=== PATIENT | female | born 1975 | race Caucasian/White ===

== ENCOUNTER 2019-11-25 12:36 | Inpatient (IN) | payer OTHER, SELFPAY ==
[2019-11-25] VITALS (7 sets, daily range): BP systolic 107–131; BP diastolic 54–71; PULSE 72–77; TEMP 36.6; BMI 30.4
--- NOTE | 2019-11-25 19:16 | PM.IMHP ---
H&P: HPI History of Present Illness Date/Time: 11/25/19 17:32 Chief complaint: Induction of Labor Narrative: Parul Darby is a 44yo @ 36.5wks who presented to L&D for her routine testing and was found to have elevated blood pressures. PEC workup was ordered and showed thrombocytopenia and elevated urine P/C of 0.5. She denies headache, sob, vision changes, or RUQ pain. Her is complicated by: - AMA w/ normal cfDNA and normal testing - A1GDM - Bipolar and anxiety disorder on zoloft 50mg daily Review of Systems Constitutional: Constitutional: Denies body ache(s) and Denies chills Eyes: Eyes: Denies blurry vision Cardiovascular: Cardiovascular: Denies chest pain and Denies palpitations Respiratory: Respiratory: Denies cough and Denies dyspnea Gastrointestinal: Gastrointestinal: Denies abdominal pain, Denies nausea and Denies vomiting Genitourinary: Comments: no vaginal bleeding or leakage of fluid Neurologic: Denies headache(s) Psychiatric: Psychiatric: Reports anxiety [facility] Past Medical History Medical History (Updated 11/25/19 @ 18:43 by Alek Branch DO) Bipolar disorder Gestational diabetes OCD (obsessive compulsive disorder) Family History Family History Mother Dementia Diabetes mellitus Sibling Lupus Bipolar 1 disorder Father Hypertension Social History Social History Substance use: never Spiritual care concerns: No Meds Home Medications and Allergies Home Medications Medication Instructions Recorded Confirmed Type PNV cmb#95-ferrous fumarate-FA 1 tablet PO DAILY 11/17/19 11/18/19 History [] sertraline [Zoloft] 50 mg PO DAILY 11/17/19 11/18/19 History Allergies Allergy/AdvReac Type Severity Reaction Status Date / Time No Known Allergies Allergy Verified 11/17/19 14:43 Exam Const: General: comfortable and no acute distress Resp: Effort & Inspection: normal respiratory effort Cardio: Rate: regular rate GI: GI Palp: No Tenderness to palpation present (GI) : Other: FHT's: 130's/mod naty/ + accels/ no decels - cat 1 TOCO: irregular ctx's q3-5min Cervix: closed/20/-3 Membranes: intact Position: cephalic on official US today Skin: General skin exam: normal color Neuro: Speech: normal speech Extrem: General: normal to inspection Psych: Affect: normal affect Assessment and Plan Assessment and plan (1) Pre-eclampsia: Qualifiers: Trimester: third trimester Qualified Code(s): O14.93 - Unspecified pre-eclampsia, third trimester Code(s): O14.90 - Unspecified pre-eclampsia, unspecified trimester Status: Acute (2) Gestational diabetes: Qualifiers: Gestational diabetes mellitus control: diet-controlled Trimester: third trimester Qualified Code(s): O24.410 - Gestational diabetes mellitus in , diet controlled Code(s): O24.419 - Gestational diabetes mellitus in , unspecified control Status: Acute (3) Advanced maternal age (AMA) in : Status: Acute Additional Plan - Pt informed of the new diagnosis of pre-eclampsia with severe features and delivery is indicated after 34wks. Pt initially had questions about waiting until full term (or another week), but informed of the maternal and risks of seizure, brain bleed, , IUFD, placental aburption. Pt then agreed to admission and IOL - Admit to L&D for cervical ripening with cervidil - BP's in normal to mild range, pt asymptomatic. Will repeat labs in AM - MgSO4 to be started tonight if severe range BP's or tomorrow after cervidil - IV labetalol per protocol if severe ranges - Glucose checks per protocol - BPP 8/8, FHT continuous and reassuring - Anesthesia consult PRN pain
[2019-11-25] MEDS: DINOPROSTONE 10 MG VAG INSERT VAGINAL (19:31)
[2019-11-25] MEDS: LACTATED RINGERS 1,000 ML 125 ML IV CONT (19:35)
[2019-11-25] MEDS: AMPICILLIN 2 GM/NS 100 ML 2 GM/100 ML BAG IVPB (19:36)
--- NOTE | 2019-11-25 19:42 | LDADM ---
This patient, Parul Darby, was admitted to Labor/Delivery/Recovery 104 on 11/25/19 at 12:36. Plans for labor, pain management and were discussed with patient. Patient/family oriented to hospital policies and general routines including ID bracelet, bed and alarms, visiting hours, pain management, procedures, bathroom and other care routines, personal items, smoking policy, room service/diet and guest tray routines, security routines, and visiting hours. Patient/Family are encouraged to report perceived risks to care and to ask questions if they do not understand what they are told or what they should do. See OBIX for further documentation.
[2019-11-25 20:29] LABS: Glucose Point of Care 123 (65-105)
[2019-11-25] MEDS: ZOLPIDEM TARTRATE 5 MG TABLET PO (23:19)
[2019-11-25] MEDS: AMPICILLIN 1 GM/NS 50 ML 1 GM/50 ML BAG IVPB (23:19)
[2019-11-26] VITALS (105 sets, daily range): BP systolic 113–172; BP diastolic 60–115; PULSE 58–161; RESP 16–18; TEMP 36.2–37.8; O2SAT 96–100
[2019-11-26] MEDS: AMPICILLIN 1 GM/NS 50 ML 1 GM/50 ML BAG IVPB ×4 (03:18→15:29)
[2019-11-26 05:35] LABS: Glucose Point of Care 82 (65-105)
[2019-11-26] MEDS: OXYTOCIN 30 UNITS/NS 500 ML 30 UNITS/500 ML BAG 6 UNITS IV CONT (06:51)
[2019-11-26 07:30] LABS: Glucose Point of Care 128 (65-105)
--- NOTE | 2019-11-26 07:38 | WPDANESEPP ---
Anes - Eval Pre Procedure Procedure: labor epidural Date/Time: 11/26/19 07:38 Preop Diagnosis: labor pain Pre Op Diagnosis: Induction of Labor Patient Data Age: 44 Gender: F Height: 5 ft 7 in Weight: 88 kg Last Vital Signs Temp 36.8 C 11/26/19 05:29 Pulse 79 11/26/19 07:31 BP 137/86 11/26/19 07:31 Allergies Allergy/AdvReac Type Severity Reaction Status Date / Time No Known Allergies Allergy Verified 11/17/19 14:43 Home Medications Medication Instructions Recorded Confirmed Type PNV cmb#95-ferrous fumarate-FA 1 tablet PO DAILY 11/17/19 11/25/19 History [] sertraline [Zoloft] 50 mg PO DAILY 11/17/19 11/25/19 History Laboratory Tests 11/25/19 11/25/19 11/25/19 19:22 19:22 20:26 POC Capillary Glucose 123 mg/dl H mg/dl (65-105) RPR Pending Blood Type A Positive Antibody Screen Negative 11/26/19 11/26/19 05:28 07:19 POC Capillary Glucose 82 mg/dl mg/dl 128 mg/dl H mg/dl (65-105) (65-105) RPR Blood Type Antibody Screen Patient hx anesthesia problems: none Family hx anesthesia problems: none PMFSH Past Medical History Medical History (Updated 11/25/19 @ 18:43 by Alek Branch DO) Bipolar disorder Gestational diabetes OCD (obsessive compulsive disorder) Family History Family History Mother Dementia Diabetes mellitus Sibling Lupus Bipolar 1 disorder Father Hypertension Social History Social History Smoking status: Former smoker Smoking end date: 04/26/19 Substance use: never Spiritual care concerns: No Exam Day of Procedure 11/26/19 07:38
--- NOTE | 2019-11-26 07:52 | PM.OBPNLAB ---
Pain Control Date/time seen: 11/26/19 07:52 Pain control: tolerating well (having some pain with contractions; considering epidural soon) Pelvic Exam Dilation (cm): 1 Effacement (%): 70 station: -3 Amniotic membrane status: Ruptured (SROM, clear @ 0500) Contractions Monitor mode: External Contraction frequency: 4 Contraction pattern: Irregular Status status: Category l Assessment and Plan Pitocin rate (mU/min): 4 Assessment: induction ongoing Plan: continuous present management Comments: - Latent phase; SROM, clear 0500 - BP's in normal to mild range; pt asymptomatic -- labs pending - FHT cat 1, continuous monitoring - Continue pitocin to obtain contractions q2-3min - Anesthesia consult for epidural
[2019-11-26 08:27] LABS: Hematocrit 38.5 % (37.0-47.0); Hemoglobin 13.4 g/dL (12.0-15.0); Immature Platelet Fraction Pct 16.9 % (0.9-11.2); Mean Corpuscular HGB Conc 34.8 g/dl (32-36); Mean Corpuscular Hemoglobin 32.2 pg (26-34); Mean Corpuscular Volume 92.5 fl (80-100); Mean Platelet Volume 13.2 fl (7.4-10.4); Platelet Count Result 115 k/mm3 (150-375); Red Blood Count 4.16 M/mm3 (4.2-5.4); Red Cell Distribution Width 12.9 % (11.5-14.5); White Blood Count 9.5 K/mm3 (4.5-10.0)
[2019-11-26 08:40] LABS: Alanine Aminotransferase 20 U/L (4-35); Albumin Level 3.2 g/dL (3.5-5.1); Alkaline Phosphatase 223 U/L (38-126); Anion Gap 6 mmol/L (8-16); Aspartate Amino Transferase 26 U/L (14-36); Bilirubin,Total 0.3 mg/dL (0.2-1.3); Blood Urea Nitrogen 12 mg/dL (7-17); Calcium 8.6 mg/dL (8.4-10.2); Carbon Dioxide 20 mmol/L (22-30); Chloride 108 mmol/L (98-107); Estimated CRCL calculation 100 ml/min; Estimated Glomerular Filt Rate > 60; Glucose 111 mg/dL (65-105); Sodium 134 mmol/L (137-145)
[2019-11-26 08:46] LABS: Potassium 3.7 mmol/L (3.4-5.0)
[2019-11-26] MEDS: LACTATED RINGERS 1,000 ML 125 ML IV CONT ×2 (10:02→22:45)
[2019-11-26 11:40] LABS: Rapid Plasma Reagin Non-Reactive (NonReactive)
[2019-11-26] MEDS: MAGNESIUM SULF 4 GM/WATER100ML 4 GM/100 ML BAG IVPB (11:52)
[2019-11-26 12:19] LABS: Glucose Point of Care 81 (65-105)
[2019-11-26] MEDS: MAGNESIUM SULF 20GM/WATER500ML 500 ML 50 MG IV CONT (12:27)
--- NOTE | 2019-11-26 12:31 | PM.OBPNLAB ---
Pain Control Date/time seen: 11/26/19 12:31 Pain control: epidural Pelvic Exam Dilation (cm): 5 Effacement (%): 90 station: -2 Amniotic membrane status: Ruptured (SROM, clear @ 0500) Contractions Monitor mode: External Contraction frequency: 3 Contraction pattern: Regular Status status: Category ll Comments: occasional late decel noted but good variability noted; resuscitation ongoing-- pt s/p epidural and having lower BP's Assessment and Plan Pitocin rate (mU/min): 18 Assessment: induction ongoing Plan: continuous present management Comments: - if lates continue; will hold pitocin - monitoring closely - making great cervical change - BP's normal range; pt asymptomatic
[2019-11-26 14:23] LABS: Glucose Point of Care 76 (65-105)
[2019-11-26] MEDS: SERTRALINE HCL 50 MG TABLET PO (14:56)
[2019-11-26] MEDS: ONDANSETRON INJ 4 MG/2 ML VIAL IV PUSH (15:50)
[2019-11-26 16:25] LABS: Glucose Point of Care 77 (65-105)
--- NOTE | 2019-11-26 18:33 | PM.OBPRVD ---
OB - Delivery Note Procedure Delivery date: 11/26/19 events: Gestational Diabetes, Pre-Eclampsia and Labor Induction Induction method: other (cervidil) Delivery augmentation: pitocin Delivery monitor: external FHT and external uterine Route of delivery: Laceration description: Perineal - 2nd Degree Delivery repair: vicryl Specimen: Yes Estimated blood loss (mL): 150 Anesthesia type: Epidural Disposition: floor Narrative: Patient progressed to complete dilation and began pushing with good maternal effort. She delivered the head over intact perineum. The shoulders and body delivered without complication. The umbilical cord was clamped and cut and the infant was immediately handed off to the awaiting pediatric team. With stimulation and suctioning, cry was heard. A segment of the umbilical cord was collected for cord gases. The remaining cord blood was collected for typing. With Pitocin running and gentle downward traction on the umbilical cord the placenta delivered without complications. Bimanual massage found that the uterus was firm. Inspection of the cervix, vagina, and perineum revealed a 2nd degree perineal laceration. The laceration was repaired using 2-0 Vicryl in the normal fashion. Good uterine tone was noted. Good hemostasis was noted. Sponge, lap, needle, instrument counts were correct at the end of the procedure. Mom and baby were left bonding in the birthing suite in a stable condition. [place] Baby Date of : 11/26/19 Time of : 18:12 Weeks of gestation at delivery: 36 Weight (pounds): 6 Weight (ounces): 9 presentation: vertex position: Left Occiput Anterior Placenta delivery description: Expressed cord vessel description: 3 Vessels score one minute: 5 score five minutes: 8
[2019-11-26] MEDS: OXYTOCIN 30 UNITS/NS 500 ML 30 UNITS/500 ML BAG 125 UNITS IV CONT (18:36)
[2019-11-26] MEDS: IBUPROFEN 600 MG TABLET PO (20:26)
[2019-11-26] MEDS: WITCH HAZEL 40 PADS 1 PAD TOPICAL (20:27)
[2019-11-26] MEDS: BENZOCAINE 20% AER SPR (*SP) 56 GM CAN 1 SPRAY TOPICAL (20:27)
--- NOTE | 2019-11-26 21:32 | OBPPTRN ---
Patient transferred to post room #282 via wheelchair. Support person present. Oriented to unit, room, information board, rooming in, admission packet and security measures. Patient verbalizes understanding. Infant was transferred to to [facility].
[2019-11-26] MEDS: ZOLPIDEM TARTRATE 5 MG TABLET PO (22:39)
[2019-11-26] MEDS: LACTATED RINGERS 1,000 ML 75 ML (22:50)
[2019-11-26] MEDS: MAGNESIUM SULF 20GM/WATER500ML 500 ML 50 MG (22:50)
[2019-11-27] VITALS (8 sets, daily range): BP systolic 103–125; BP diastolic 61–80; PULSE 64–76; RESP 16–18; TEMP 36.1–37; O2SAT 96–100
[2019-11-27 05:50] LABS: Hematocrit 35.3 % (37.0-47.0); Hemoglobin 12.1 g/dL (12.0-15.0); Immature Platelet Fraction Pct 16.7 % (0.9-11.2); Mean Corpuscular HGB Conc 34.3 g/dl (32-36); Mean Corpuscular Volume 93.4 fl (80-100); Mean Platelet Volume 13.6 fl (7.4-10.4); Platelet Count Result 107 k/mm3 (150-375); Red Blood Count 3.78 M/mm3 (4.2-5.4); White Blood Count 14.8 K/mm3 (4.5-10.0)
[2019-11-27 06:09] LABS: Alanine Aminotransferase 15 U/L (4-35); Albumin Level 2.6 g/dL (3.5-5.1); Alkaline Phosphatase 203 U/L (38-126); Anion Gap 5 mmol/L (8-16); Aspartate Amino Transferase 26 U/L (14-36); Bilirubin,Total 0.2 mg/dL (0.2-1.3); Blood Urea Nitrogen 12 mg/dL (7-17); Calcium 7.1 mg/dL (8.4-10.2); Carbon Dioxide 23 mmol/L (22-30); Chloride 103 mmol/L (98-107); Estimated CRCL calculation 79 ml/min; Estimated Glomerular Filt Rate > 60; Glucose 146 mg/dL (65-105); Potassium 3.8 mmol/L (3.4-5.0); Sodium 131 mmol/L (137-145)
--- NOTE | 2019-11-27 07:42 | WPDANLDPN2 ---
Anes-Prog Note L&D Date/Time: 11/27/19 07:42 Comfortable throughout: labor Neuraxial method: epidural Epidural/Spinal procedure site: clean & non-tender Neuro status: Neuro function grossly intact. Cardiovascular status: normal Respiratory status: normal Airway patency: baseline Mental status: baseline Post-Op hydration status: normal Vital Signs: Last Vital Signs Temp 36.3 C L 11/27/19 05:00 Pulse 71 11/27/19 05:00 Resp 16 11/27/19 05:00 BP 108/65 11/27/19 05:00 Pulse Ox 97 11/27/19 05:00 I/O: Intake & Output 11/26/19 11/26/19 11/27/19 15:59 23:59 07:59 Intake Total 200 2920 Output Total 972 700 Balance 200 1948 -700 Post-procedural complaints: none Patient feedback: Patient satisfied with anesthetic care.
[2019-11-27] MEDS: ACETAMINOPHEN 325 MG TABLET 650 MG PO ×3 (08:26→22:17)
[2019-11-27] MEDS: SERTRALINE HCL 50 MG TABLET PO ×2 (08:26→12:09)
[2019-11-27] MEDS: IBUPROFEN 600 MG TABLET PO ×3 (08:27→22:20)
[2019-11-27] MEDS: DOCUSATE SODIUM 100 MG CAPSULE PO (08:27)
[2019-11-27] MEDS: MULTIVIT/MIN/PREN/FOL AC/IRON TABLET 1 TAB PO (08:28)
[2019-11-27] MEDS: MAGNESIUM SULF 20GM/WATER500ML 500 ML 50 MG IV CONT (09:03)
--- NOTE | 2019-11-27 10:30 | PC.NURSE ---
Consult with pt., mother states she is unsure if she wishes to initiate pumping. Mother may have to begin medications that she cannot breastfeed with. Decision to wait until mother speaks with her psychiatrist.
--- NOTE | 2019-11-27 11:45 | PM.OBPNVD ---
OB - PN: Subj Subjective Date/time seen: 11/27/19 17:13 Parul is a 44yo now [id number] s/p , PPD#1 Today she reports physically being fine, mentally not well. She states her pain is controlled. She is eating regular diet. She has ambulated to the restroom. She is voiding and passing flatus. She reports her bleeding is light. She states her mood is all over the place though. She is very tired (only slept 4 hrs the last two nights). She feels very down and anxious. She thinks the zoloft 50mg is helping, but not enough and would like to go to 100mg. She is also considering restarting her bipolar medications (Latuda and Casa) and is aware that she cannot breast feed while taking these medications. She is conflicted with bottle feeding. She has considered contacting her psychiatrist, Dr. Tomasz Rajput. She feels like she needs to stay in the hospital another night or two to get rest as she feels like she cannot care for her son in her current state. She denies CP, SOB, KELLY, vision changes, N/V, fever, chills, dizziness, or palpitations. Her son was transferred to [facility] last night due to sustained SVT that would not convert with vagal maneuvers or adenosine x2. It did convert after UVC was placed and an additional dose of adenosine was given. He was placed on metoprolol drip. He was also noted to have 7 crusted lesions on his body (concern for staph vs HSV). He also originally had poor tone/cry, which has improved today. He was also assisted with breathing via [place] (TTP). They are giving him antibiotics/acyclovir and have completed a sepsis w/u. This morning he was pending cardiology consult. They also plan to swab the lesions 24hrs after for bacterial and HSV. After discussing with the patient, she denies any h/o cold sores or genital herpes lesions ever (none prior to or during ). OB - PN: Obj Data Labs CBC & Chem 7: 11/27/19 05:05 11/27/19 05:04 Labs: Laboratory Results - last 24 hr 11/27/19 11/27/19 05:04 05:05 WBC 14.8 H RBC 3.78 L Hgb 12.1 Hct 35.3 L MCV 93.4 MCH 32.0 MCHC 34.3 RDW 13.0 Plt Count 107 L MPV 13.6 H % Immature Plt Fraction 16.7 H Sodium 131 L Potassium 3.8 Chloride 103 Carbon Dioxide 23 Anion Gap 5 L BUN 12 Creatinine 0.90 Estim Creat Clear Calc 79 Estimated GFR > 60 Glucose 146 H Calcium 7.1 L Total Bilirubin 0.2 AST 26 ALT 15 Alkaline Phosphatase 203 H Total Protein 5.0 L Albumin 2.6 L OB - PN A/P Assessment and Plan (1) Bipolar 1 disorder, mixed: Code(s): F31.60 - Bipolar disorder, current episode mixed, unspecified Status: Acute (2) Pre-eclampsia: Qualifiers: Trimester: third trimester Qualified Code(s): O14.93 - Unspecified pre-eclampsia, third trimester Code(s): O14.90 - Unspecified pre-eclampsia, unspecified trimester Status: Acute (3) Vaginal delivery: Code(s): O80 - Encounter for full-term uncomplicated delivery Status: Acute Plan day: 1 Comments: - ; she is meeting her PP milestones - Will discontinue MgSO4 today-- BP's in normal range; pt asymptomatic-- will continue to monitor BP's closely, will repeat labs again tomorrow - Will increase Zoloft to 100mg daily - Dr. Tomasz Rajput's office contacted; awaiting call back to discuss his opinion on restarting medications now vs monitoring her response on the increased zoloft. If he recommends restarting prior meds will discuss the normal titration (slowly increase vs restart at the previous dose). I also recommended the pt make appt with him RENATA. I will also see the patient in 1wk to follow up BP's and mood. - Plan for possible discharge home Sunday evening/Sunday morning Time Spent With Patient Time: Total time spent is greater than 50% in coordination of care (as documented) at patient's floor/unit and/or counseling patient: Time with
[2019-11-27] MEDS: ZOLPIDEM TARTRATE 5 MG TABLET PO (22:20)
[2019-11-28] MEDS: ACETAMINOPHEN 325 MG TABLET 650 MG PO ×2 (04:51→09:36)
[2019-11-28] MEDS: IBUPROFEN 600 MG TABLET PO ×2 (04:52→10:54)
[2019-11-28 05:38] VITALS: BP 124/79; PULSE 63; RESP 16; TEMP 36.9; O2SAT 97
[2019-11-28 07:50] VITALS: BP 133/80; PULSE 64; RESP 16; TEMP 36.8; O2SAT 99
[2019-11-28] MEDS: SERTRALINE HCL 50 MG TABLET 100 MG PO (09:35)
[2019-11-28] MEDS: DOCUSATE SODIUM 100 MG CAPSULE PO (09:35)
--- NOTE | 2019-11-28 11:38 | PC.NURSE ---
Pt viewed the discharge DVD on the hospital computer.
[2019-11-28 12:35] VITALS: BP 144/89; PULSE 80; RESP 18; TEMP 37.2; O2SAT 99
--- NOTE | 2019-12-03 12:47 | PM.OBDSVD ---
DS: Admitting Diagnosis Admitting Diagnosis Admitting Diagnosis: Induction of Labor DS: Discharge Diagnosis Discharge Diagnosis (1) Pre-eclampsia: Qualifiers: Trimester: third trimester Qualified Code(s): O14.93 - Unspecified pre-eclampsia, third trimester Code(s): O14.90 - Unspecified pre-eclampsia, unspecified trimester Status: Acute (2) Advanced maternal age (AMA) in : Status: Acute (3) Gestational diabetes: Qualifiers: Gestational diabetes mellitus control: diet-controlled Trimester: third trimester Qualified Code(s): O24.410 - Gestational diabetes mellitus in , diet controlled Code(s): O24.419 - Gestational diabetes mellitus in , unspecified control Status: Acute (4) Bipolar 1 disorder, mixed: Code(s): F31.60 - Bipolar disorder, current episode mixed, unspecified Status: Acute (5) Vaginal delivery: Code(s): O80 - Encounter for full-term uncomplicated delivery Status: Acute OB - DS: Summary OB Procedures : NST and Ultrasound OB Procedures Intrapartum: Spontaneous Vag Delivery OB Procedures: : None Peripartum Data Infant Delivery Method: Natural Vaginal Laceration description: Perineal - 2nd Degree complications: none [place] 1: Gender: Female Disposition of : NICU (transferred to [facility] on day of life 0) Status at Discharge Functional status at discharge: independent ambulation Overall status at discharge: patient is back to baseline Time Spent with Patient Time attestation: Total time spent providing and/or coordinating discharge services: Exam Const: General: comfortable, no acute distress, alert and awake Orientation/consciousness: patient oriented x3 Limitations: no limitations Resp: Effort & Inspection: normal respiratory effort Auscultation: clear to auscultation bilaterally Cardio: Rate: regular rate GI: GI Palp: No Tenderness to palpation present (GI) Auscultation: normal bowel sounds Other: non-distended, soft : Other: fundus firm below umbilicus Psych: Appearance: grossly normal Affect: normal affect Attitude: cooperative Discharge Plan Discharge Attending physician on discharge: Dior Craft Discharging Clinician: Dior Craft Anticipated Discharge Date/Time: 11/28/19 14:00 Patient Disposition: Home, Self-Care Activity: may shower, no straining, may drive after 2 weeks, as tolerated and pelvic rest Diet: regular Discharge Instructions: Education: Mom and Baby Guide Given to: Mother Follow-Up: Call your delivering provider's office for an appointment to be seen in: see Dr. Rivera. December 03 Mom and baby should come to the [facility] for the follow-up appointment. Appointment Date/Time: December 01, 2019 at 12:30 pm What to expect at your follow-up visit: Blood Pressure Check Physical Assessment Call [phone] if you are unable to keep your appointment time. BREAST CARE: * Wear a snug supportive bra. * For engorgement discomfort: Breast Feeding: * Apply warm moist washcloths * Express milk as needed to relieve engorgement * Wear loose clothing Bottle Feeding: * May apply ice packs * For sore nipples: * Identify correct latch-on * Apply warm moist washcloths before and after nursing * Air dry nipples after nursing * May apply Lansinoh cream to nipples EPISIOTOMY/PERINEAL CARE: * Until bleeding stops, use your toi bottle after urinating * Change your pad frequently throughout the day * You may take sitz baths several times a day (fill your bathtub with warm water and soak for 20 minutes.) Do NOT bathe in the water * No tub baths until seen by your physician - You may shower ACTIVITY: * Rest as much as possible. * Do not exercise or lift anything heavier [place]
== END 2019-11-28 13:55 | disposition home or self-care (01) | DRG 560 ==
LOC: ANHOBPP 16:55 → ANHLDR 16:57 → ANHOB2 11-27 00:06
PROVIDERS: Admitting Provider Obstetrics & Gynecology; Visit Provider Obstetrics & Gynecology
DX: O14.14 Severe pre-eclampsia complicating childbirth (principal); Z37.0 Single live birth; Z3A.36 36 weeks gestation of pregnancy; O24.410 Gestational diabetes mellitus in pregnancy, diet controlled; O99.824 Streptococcus B carrier state complicating childbirth; O36.8330 Maternal care for abnormalities of the fetal heart rate or rhythm, third trimester, not applicable or unspecified; O99.12 Other diseases of the blood and blood-forming organs and certain disorders involving the immune mechanism complicating childbirth; D69.6 Thrombocytopenia, unspecified; O99.344 Other mental disorders complicating childbirth; F31.9 Bipolar disorder, unspecified; F41.9 Anxiety disorder, unspecified; F42.9 Obsessive-compulsive disorder, unspecified; O70.1 Second degree perineal laceration during delivery
CPT/HCPCS: 36415; 59025; 76816; 76819; 80053; 82570; 84156; 84550; 85025; 85027; 85055; 86592; 86850; 86900; 86901; A9270; J0131; J0290; J2405; J2590; J2795; J3475; J7120

== ENCOUNTER 2019-11-25 12:39 | Outpatient (RCR) | payer MEDICAID, SELFPAY ==
[2019-10-22 14:23] VITALS: BP 120/74; PULSE 97
[2019-10-28 14:38] VITALS: BP 123/73; PULSE 77
[2019-11-04 15:39] VITALS: BP 124/70; PULSE 69
[2019-11-11 15:14] LABS: Glucose Point of Care 98 (65-105)
[2019-11-11 17:16] VITALS: BP 131/79; PULSE 72
--- NOTE | 2019-11-11 17:19 | PC.NURSE ---
1500 pt back from BPP resulted 07/01. called Dr. Craft and order received to monitor another [address] Craft in unit reviewed NST. ordered repeat BPP at bedside. 1700 Ultrasound at bedside. BPP 10/31. Dr. Craft ordered okay to discharge.
--- NOTE | ~2019-11-25 | US_ITS ---
EXAMINATION: US OB BPP wo non-stress DATE: 11/11/2019 14:59 INDICATION: Diabetes, third trimester TECHNIQUE: Real-time pelvic ultrasound was performed. The interpreting radiologist was not present fo r the study. COMPARISON: None. FINDINGS: There is a single living fetus in vertex presentation. The placenta is posterior. heart rate is 134 beats per minute (bpm). Biophysical profile performed by the technologist: breathing (30 sec sustained breathing in 30 minutes): 2 out of 2 movement (3 gross body movements in 30 minutes): 0 out of 2 tone (one episode of ulddepu-aqmsrbcby-ahxyoxq limb movement): 0 out of 2 Amniotic fluid pocket (2 cm): 2 out of 2 Total score: 4 out of 8 IMPRESSION: 1. Single living fetus in vertex presentation. 2. Biophysical profile 4 out of 8. Reviewed, dictated and finalized at location A.
--- NOTE | ~2019-11-25 | US_ITS ---
EXAMINATION: US OB follow up w BPP DATE: 11/25/2019 14:40 INDICATION: Maternal gestational diabetes. Assess biophysical profile and estimated weight duri third trimester of . TECHNIQUE: Real-time pelvic ultrasound was performed. The interpreting radiologist was not present fo r the study. COMPARISON: 11/18/2019 FINDINGS: There is a single living fetus in vertex presentation. The placenta is fundal with multiple small in ternal anechoic placental lakes. heart rate is 124 beats per minute (bpm). Normal amniotic flui d index of 16.1 cm (5th%-95%: 7.7-24.4 cm at 36 weeks estimated gestational age). The following biometric data were obtained: BPD: 9.1 cm -> 37 weeks 0 days Head circumference: 32.4 cm -> 37 weeks 1 days Abdominal circumference: 32.9 cm -> 36 weeks 6 days Femur length: 7.2 cm -> 36 weeks 5 days These measurements are concordant. Head circumference to abdominal circumference ratio: 0.99 (normal range 0.92-1.05). Estimated weight: 3053 g (+/-) 458 g, 6lbs 12oz (+/-) 16oz Biophysical profile performed by the technologist: breathing (30 sec sustained breathing in 30 minutes): 2 out of 2 movement (3 gross body movements in 30 minutes: 2 out of 2 tone (one episode of lludqfq-vytsffwlh-fosbmrp limb movement): 2 out of 2 Amniotic fluid pocket (2 cm): 2 out of 2 Total score: 8 out of 8 IMPRESSION: 1. Single living fetus in vertex presentation with heart rate of 124 bpm. 2. Normal amniotic fluid index of 16.1 cm. 3. Biophysical profile 8 out of 8. 4. Estimated weight is 59th percentile by Hadlock criteria when 12/18/2019 is used as the estima jose d date of delivery (PARMJIT). Please correlate with clinical information or earlier ultrasounds for mos t accurate PARMJIT. Reviewed, dictated and finalized at location B. IMPRESSION: 1. Single living fetus in vertex presentation with heart rate of 124 bpm . 2. Normal amniotic fluid index of 16.1 cm. 3. Biophysical profile 8 out of 8. 4. Estimated weight is 59th percentile by Hadlock criteria when 12/18/2019 is used as the estimated date of delivery (PARMJIT). Please correlate with clinica l information or earlier ultrasounds for most accurate PARMJIT.
--- NOTE | ~2019-11-25 | US_ITS ---
EXAMINATION: US OB BPP wo non-stress DATE: 11/11/2019 17:20 INDICATION: Prior failed biophysical profile TECHNIQUE: Real-time pelvic ultrasound was performed. The interpreting radiologist was not present fo r the study. COMPARISON: 11/11/2019 at 2:07 PM FINDINGS: There is a single living fetus in vertex presentation. The placenta is posterior fundal a few small central hypoechoic placental lakes. heart rate is 138 beats per minute (bpm). Biophysical profile performed by the technologist: breathing (30 sec sustained breathing in 30 minutes): 2 out of 2 movement (3 gross body movements in 30 minutes): 2 out of 2 tone (one episode of jvavuzf-soniudufd-fzxetwv limb movement): 2 out of 2 Amniotic fluid pocket (2 cm): 2 out of 2 Total score: 8 out of 8 IMPRESSION: 1. Single living fetus in vertex presentation with heart rate of 138 bpm. 2. Biophysical profile 8 out of 8. Reviewed, dictated and finalized at location A.
--- NOTE | ~2019-11-25 | US_ITS ---
EXAMINATION: US OB BPP wo non-stress EXAM DATE: 11/18/2019 13:51 INDICATION: Gestational diabetes. 3rd trimester. TECHNIQUE: Pelvic obstetrical transabdominal sonogram was performed by a technologist. There are mu ltiple grayscale and Doppler images available for interpretation. Comparison is made to prior examina tion from 11/11/2019. FINDINGS: There is a single fetus identified in vertex presentation with a heart rate of 159 beats pe r minute. The placenta is located in the posterior fundal position. There is no sonographic evidence of retroplacental hemorrhage identified. BIOPHYSICAL PROFILE (performed by the technologist) breathing (30 sec sustained breathing in 30 minutes): 2 out of 2 movement (3 gross body movements in 30 minutes): 2 out of 2 tone (one episode of uqrbynu-hxufoyfie-xqgtcql limb movement): 2 out of 2 Amniotic fluid pocket (2 cm): 2 out of 2 Total score: 8 out of 8 IMPRESSION: 1. Single fetus with heart rate of 159 bpm. 2. Normal biophysical profile score of 8 out of 8. Reviewed, dictated and finalized at location A.
[2019-11-25 13:37] VITALS: BP 136/93; PULSE 70
--- NOTE | 2019-11-25 14:00 | PC.NURSE ---
Called Dr. Craft with BPs. Labs ordered. Call with results.
[2019-11-25 15:15] LABS: Basophils Absolute Auto 0.1 K/mm3 (0.0-0.1); Basophils Percent Auto 0.8 % (0.2-1.2); Eosinophils Absolute Auto 0.1 K/mm3 (0-0.3); Hematocrit 41.4 % (37.0-47.0); Hemoglobin 14.3 g/dL (12.0-15.0); Immature Granulocyte Absolute 0.04 K/mm3 (0.00-0.031); Immature Granulocyte Percent A 0.4 % (0-0.5); Lymphocytes Absolute Auto 2.12 K/mm3 (0.9-3.2); Lymphocytes Percent Auto 22.8 % (18.3-44.2); Mean Corpuscular HGB Conc 34.5 g/dl (32-36); Mean Corpuscular Hemoglobin 31.8 pg (26-34); Mean Platelet Volume 13.6 fl (7.4-10.4); Monocytes Absolute Auto 0.8 K/mm3 (0.1-0.6); Monocytes Percent Auto 8.1 % (2.6-8.5); Neutrophils Absolute Auto 6.2 K/mm3 (1.3-6.7); Neutrophils Percent Auto 66.9 % (45.5-73.1); Platelet Count Result 143 k/mm3 (150-375); Red Cell Distribution Width 12.8 % (11.5-14.5); White Blood Count 9.3 K/mm3 (4.5-10.0)
[2019-11-25 15:17] LABS: Creatinine Urine 24.5 mg/dL; Total Protein Urine Random 13 mg/dL
[2019-11-25 15:26] LABS: Alanine Aminotransferase 23 U/L (4-35); Albumin Level 3.6 g/dL (3.5-5.1); Alkaline Phosphatase 251 U/L (38-126); Anion Gap 6 mmol/L (8-16); Aspartate Amino Transferase 32 U/L (14-36); Bilirubin,Total 0.4 mg/dL (0.2-1.3); Blood Urea Nitrogen 13 mg/dL (7-17); Calcium 9.6 mg/dL (8.4-10.2); Carbon Dioxide 21 mmol/L (22-30); Chloride 105 mmol/L (98-107); Estimated Glomerular Filt Rate > 60; Glucose 84 mg/dL (65-105); Potassium 4.3 mmol/L (3.4-5.0); Sodium 132 mmol/L (137-145); Uric Acid 6.1 mg/dL (2.5-7.5)
--- NOTE | 2019-11-25 15:30 | PC.NURSE ---
Called Dr. Craft with lab results and BPs. Informed of SVE. Orders received to admit for induction. Dr. Craft will come to see pt and discuss plan of care.
--- NOTE | 2019-11-25 15:45 | PC.NURSE ---
Informed pt of Dr. Craft' orders. Pt requesting to talk to Dr. Craft before starting induction.
--- NOTE | 2019-11-25 15:58 | PC.NURSE ---
Informed Dr. Craft that pt is requesting to discuss plan of care with her before starting induction. Dr. Craft will be here soon.
--- NOTE | 2019-11-25 16:40 | PC.NURSE ---
Dr. Craft at bedside to discuss plan of care and risks and benefits with pt.
--- NOTE | 2019-11-25 16:45 | PC.NURSE ---
BPs 1300-145/81 1315-143/81 1330-136/93 1515-139/89 1530-146/89 1545-139/109 1600-134/84 1615-129/81 1630-143/89 1645-157/100 Dr. Craft at bedside talking to pt.
--- NOTE | 2019-11-25 17:00 | PC.NURSE ---
Pt moved to room 104 for induction of labor.
== END 2019-11-27 08:09 | disposition home or self-care (01) ==
LOC: ANHOBOP 12:39
PROVIDERS: Visit Provider Obstetrics & Gynecology
DX: O24.419 Gestational diabetes mellitus in pregnancy, unspecified control (principal); O09.513 Supervision of elderly primigravida, third trimester; Z3A.31 31 weeks gestation of pregnancy; Z3A.32 32 weeks gestation of pregnancy; Z3A.33 33 weeks gestation of pregnancy; Z3A.34 34 weeks gestation of pregnancy; Z3A.35 35 weeks gestation of pregnancy; Z3A.36 36 weeks gestation of pregnancy
CPT/HCPCS: 36415; 59025; 76816; 76819; 80053; 82570; 84156; 84550; 85025; 85055